=== PATIENT | female | born 1955 ===

== ENCOUNTER 2021-04-06 11:32 | Emergency (ER) | payer MEDICARE, OTHER ==
[~2021-04-06] VITALS: Ht 162.6 cm; Wt 85.9 kg
[2021-04-06 11:45] VITALS: TEMP 96.9
[2021-04-06 12:08] LABS: BASO # 0.1 K/mm3 (0.0-0.2); BASO % 0.6 % (0.0-2.0); EOS # 0.1 K/mm3 (0.0-0.7); EOS % 0.9 % (0-4.0); GRAN # 6.1 K/mm3 (1.4-6.5); GRAN % 69.1 % (42.2-75.2); HEMATOCRIT 38.6 % (37.0-47.0); HEMOGLOBIN 13.1 g/dl (12.5-16.0); LYMPH # 1.9 K/mm3 (1.2-3.4); LYMPH % 22.2 % (20.0-51.0); MEAN CELL VOLUME 90 fl (80.0-100.0); MEAN CORPUSCULAR HEMOGLOBIN 30 pg (27.0-31.0); MEAN CORPUSCULAR HGB CONC 34 g/dl (33.0-37.0); MEAN PLATELET VOLUME 10.5 fl (7.4-10.4); MONO # 0.6 K/mm3 (0.1-0.6); MONO % 6.9 % (1.7-9.3); PLATELET COUNT 331 K/mm3 (130-400); RED BLOOD COUNT 4.31 M/mm3 (4.10-5.30); REDCELL DISTRIBUTION WIDTH-CV 12.7 % (11.5-14.5)
[2021-04-06 12:38] LABS: ALBUMIN 4.1 gm/dL (3.4-4.8); BILIRUBIN,TOTAL 0.5 mg/dL (0.2-1.2); C-REACTIVE PROTEIN 1.42 mg/dL (0.00-0.50); CALCIUM 9.2 mg/dL (8.4-10.2); CREATININE, serum 0.73 mg/dL (0.57-1.11); POTASSIUM 4.1 mmol/L (3.5-4.5); TOTAL PROTEIN 7.5 gm/dL (6.2-8.1)
[2021-04-06] MEDS ORDERED: PROTONIX 40MG T40 MG PO (14:56)
[2021-04-06 15:21] VITALS: BP 168/96; PULSE 77
[2021-04-07] MEDS ORDERED: ZESTRIL 10MG10 MG PO (14:58)
== END 2021-04-06 15:23 | disposition home or self-care (01) ==
LOC: COL.ER 11:32
PROVIDERS: Emergency Medicine
DX: R10.13 Epigastric pain (principal); I10 Essential (primary) hypertension; Z87.19 Personal history of other diseases of the digestive system
CPT/HCPCS: C9113; J2270; J2405; J7030; Q9967

== ENCOUNTER 2021-04-07 14:03 | Observation (INO) | payer MEDICARE, OTHER ==
[~2021-04-07 14:03] MED LIST: PROTONIX 40MG T40 MG PO
[2021-04-07 14:38] VITALS: BP 138/79; PULSE 93; TEMP 98.1
[2021-04-07] MEDS ORDERED: ZESTRIL 10MG10 MG PO (14:58)
[2021-04-07 15:34] LABS: BASO # 0.1 K/mm3 (0.0-0.2); BASO % 0.4 % (0.0-2.0); EOS % 0.2 % (0-4.0); GRAN # 13.6 K/mm3 (1.4-6.5); GRAN % 81.8 % (42.2-75.2); HEMATOCRIT 38.2 % (37.0-47.0); HEMOGLOBIN 12.5 g/dl (12.5-16.0); LYMPH # 1.5 K/mm3 (1.2-3.4); LYMPH % 9.1 % (20.0-51.0); MEAN CELL VOLUME 93 fl (80.0-100.0); MEAN CORPUSCULAR HEMOGLOBIN 30 pg (27.0-31.0); MEAN CORPUSCULAR HGB CONC 33 g/dl (33.0-37.0); MEAN PLATELET VOLUME 10.4 fl (7.4-10.4); MONO # 1.4 K/mm3 (0.1-0.6); MONO % 8.1 % (1.7-9.3); PLATELET COUNT 302 K/mm3 (130-400); RED BLOOD COUNT 4.13 M/mm3 (4.10-5.30)
--- NOTE | 2021-04-07 15:36 | NUR ---
Patient NPO since [address] Olvera notified of arrival.
[2021-04-07 15:41] LABS: INR 1.1 (0.8-3.0); PROTHROMBIN TIME 12.2 SECONDS (9.7-12.8)
[2021-04-07 15:51] LABS: ALBUMIN 3.6 gm/dL (3.4-4.8); BILIRUBIN,TOTAL 0.7 mg/dL (0.2-1.2); C-REACTIVE PROTEIN 13.8 mg/dL (0.00-0.50); CALCIUM 9.4 mg/dL (8.4-10.2); CREATININE, serum 0.79 mg/dL (0.57-1.11); POTASSIUM 4.1 mmol/L (3.5-4.5); TOTAL PROTEIN 7.1 gm/dL (6.2-8.1)
[2021-04-07 16:45] VITALS: BP 161/66; PULSE 96; TEMP 98.1
[2021-04-07 20:34] VITALS: BP 148/66; PULSE 88; TEMP 98.8
[2021-04-07 23:59] VITALS: BP 132/70; PULSE 95; TEMP 99.3
[2021-04-08] VITALS (10 sets, daily range): BP systolic 119–138; BP diastolic 63–70; PULSE 76–95; TEMP 97.3–98.3
--- NOTE | 2021-04-08 00:01 | NUR ---
ALERT AND OX4. DENIES SOA, CHEST PAIN OR DIZZY. PIZARRO RATES 4/10. LR INFUSING. WILL BE NPO AT MIDNIGHT. POC DISCUSSED. CALL LIGHT WI REACH.
--- NOTE | 2021-04-08 04:54 | NUR ---
DENIES PAIN THIS AM. ANTIBOTICS AND IV FLUIDS HUNG. ANTICPATES SURG THIS AM. NOT CONSENTED OF YET- NO ORDERS.
[2021-04-08 06:41] LABS: BASO % 0.3 % (0.0-2.0); EOS # 0.2 K/mm3 (0.0-0.7); EOS % 1.3 % (0-4.0); GRAN # 10.3 K/mm3 (1.4-6.5); HEMOGLOBIN 11.5 g/dl (12.5-16.0); LYMPH # 1.7 K/mm3 (1.2-3.4); LYMPH % 12.4 % (20.0-51.0); MEAN CELL VOLUME 96 fl (80.0-100.0); MEAN CORPUSCULAR HEMOGLOBIN 31 pg (27.0-31.0); MEAN CORPUSCULAR HGB CONC 32 g/dl (33.0-37.0); MEAN PLATELET VOLUME 10.8 fl (7.4-10.4); MONO # 1.1 K/mm3 (0.1-0.6); MONO % 8.5 % (1.7-9.3); PLATELET COUNT 269 K/mm3 (130-400); RED BLOOD COUNT 3.77 M/mm3 (4.10-5.30); REDCELL DISTRIBUTION WIDTH-CV 13.1 % (11.5-14.5)
[2021-04-08 06:47] LABS: HEMATOCRIT 36.2 % (37.0-47.0)
[2021-04-08 07:04] LABS: ALBUMIN 3.1 gm/dL (3.4-4.8); BILIRUBIN,TOTAL 0.7 mg/dL (0.2-1.2); CALCIUM 8.8 mg/dL (8.4-10.2); CREATININE, serum 0.69 mg/dL (0.57-1.11); POTASSIUM 3.4 mmol/L (3.5-4.5); TOTAL PROTEIN 6.6 gm/dL (6.2-8.1)
--- NOTE | 2021-04-08 07:35 | NUR ---
ICG GREEN GIVEN PRE OP PER ORDERS. LR TO GRAVITY. NO ORDERS FOR CONSENT. KECIA PACU NURSE AWARE. PATIENT UP TO THE BATHROOM & VOIDED. PRE OP CHECK LIST COMPLETED. WILL AWAIT HER RETURN FROM THE OR.
[2021-04-08] MEDS ORDERED: MOTRIN 600600 MG/TAB PO (10:15)
[2021-04-08] MEDS ORDERED: NORCO 325 MG-51 TAB PO (10:15)
[2021-04-08] MEDS ORDERED: FLAGYL500 MG PO (10:16)
[2021-04-08] MEDS ORDERED: CIPRO 500MG TA500 MG PO (10:16)
--- NOTE | 2021-04-08 13:12 | NUR ---
Patient has returned from surgery. She is has done well. Post op vitals stable. Lunch ordered. One tab norco for RUQ pain. Lap site x5 edges well approimated. Open to air. Will monitor.
--- NOTE | 2021-04-08 13:50 | NUR ---
Plan is to return home. Patient reports that she has a significant other Zeus Tyler as care support. Patient reports that she also has a DTR Eva who is also POA. PCP is Dr. Watters. Patient reports that she has a yearly. [facility] and denies having any care concerns. Patient denies being in any pain and not using any DME. SW educated on case managment supports. NF
--- NOTE | 2021-04-08 15:00 | NUR ---
Patient resting, O2 89 percent on room air. Patient placed back on O2. Patietn has been up to the bathroom and voided. Will monitor.
--- NOTE | 2021-04-08 16:05 | NUR ---
Patient feels ready for discharge home. O2 checked. 95 percent on room air. I spoke to and orders obtained. We reviewed all discharge paperwork. Patient aware of scripts sent to pharmacy. Medication safety reviewed & importance of taking antibioitcs tonight. Int dc. Activity & low fat diet restrictions reviewed. Patient aware she needs to make 2 weeks follow up appt on Saturday. Signs and symptoms of when to call doctor or seek medical attention reviewed. Patient wheeled out with all belongings & significant other taking her home
== END 2021-04-08 16:23 | disposition home or self-care (01) ==
LOC: SURG 14:03
PROVIDERS: ADMIT Surgery
DX: K80.00 Calculus of gallbladder with acute cholecystitis without obstruction (principal); I10 Essential (primary) hypertension; K21.9 Gastro-esophageal reflux disease without esophagitis; Z79.899 Other long term (current) drug therapy
CPT/HCPCS: G0378; J0690; J0744; J2405; J2704; J2710; J3010; J7120

== ENCOUNTER → 2021-05-25 | Outpatient (CLI) | payer MEDICARE, OTHER ==
[~2021-05-25] MED LIST changes: +CIPRO 500MG TA500 MG PO; +FLAGYL500 MG PO; +MOTRIN 600600 MG/TAB PO; +NORCO 325 MG-51 TAB PO; +ZESTRIL 10MG10 MG PO
== END ==
LOC: COL.RAD 14:11 → MC.RAD 14:30 → COL.RAD 14:30
DX: Z12.31 Encounter for screening mammogram for malignant neoplasm of breast (principal)

== ENCOUNTER 2022-06-07 07:17 | Emergency (ER) | payer MEDICARE ==
[~2022-06-07] VITALS: Ht 162.6 cm; Wt 86.4 kg
[2022-06-07 07:24] VITALS: TEMP 97.7
[2022-06-07 07:50] LABS: HEMATOCRIT 37.1 % (37.0-47.0); HEMOGLOBIN 12.3 g/dl (12.5-16.0); MEAN CELL VOLUME 92 fl (80.0-100.0); MEAN CORPUSCULAR HEMOGLOBIN 30 pg (27-31); MEAN CORPUSCULAR HGB CONC 33 g/dl (33.0-37.0); MEAN PLATELET VOLUME 11.3 fl (7.4-10.4); PLATELET COUNT 259 K/mm3 (130-400); RED BLOOD COUNT 4.05 M/mm3 (4.10-5.30); REDCELL DISTRIBUTION WIDTH-CV 12.9 % (11.5-14.5)
[2022-06-07 08:04] LABS: ALBUMIN 3.5 gm/dL (3.4-4.8); ANION GAP 10 mmol/L (7-16); BLOOD UREA NITROGEN 18 mg/dL (10-20); CALCIUM 9.4 mg/dL (8.4-10.2); CARBON DIOXIDE 21 mmol/L (23-31); CHLORIDE 108 mmol/L (98-107); CREATININE, serum 0.79 mg/dL (0.57-1.11); GLUCOSE 109 mg/dL (70-99); MAGNESIUM 2.1 mg/dL (1.6-2.6); PHOSPHOROUS 3.4 mg/dL (2.3-4.7); POTASSIUM 3.5 mmol/L (3.5-4.5); SODIUM 139 mmol/L (136-145)
[2022-06-07 08:10] LABS: TROPONIN-I < 0.010 ng/mL (0.00-0.033)
[2022-06-07 08:56] VITALS: BP 153/98; PULSE 67
== END 2022-06-07 08:56 | disposition home or self-care (01) ==
LOC: COL.ER 07:17
PROVIDERS: Emergency Medicine
DX: I49.1 Atrial premature depolarization (principal)

== ENCOUNTER → 2023-07-16 | Outpatient (CLI) | payer MEDICARE | LOC: MC.RAD 13:38 | DX: Z12.31 Encounter for screening mammogram for malignant neoplasm of breast (principal) ==